=== PATIENT | female | born 1965 | race Caucasian/White ===

== ENCOUNTER 2017-12-23 05:45 | Day surgery (SDC) | payer OTHER ==
[2017-12-23] MEDS ORDERED: NEOSTIGMINE 3 MG/3 ML SYRINGE (06:33)
[2017-12-23] MEDS ORDERED: DEXAMETHASONE 4 MG/ML 1 ML INJ (06:33)
[2017-12-23] MEDS ORDERED: LIDOCAINE 2% (SDV) 5 ML INJ (06:33)
[2017-12-23] MEDS ORDERED: FENTAnyl 50 MCG/ML VIAL (06:33)
[2017-12-23] MEDS ORDERED: ROCURONIUM 50 MG INJ (06:33)
[2017-12-23] MEDS ORDERED: PROPOFOL 20 ML (06:33)
[2017-12-23] MEDS ORDERED: MIDAZOLAM 1 MG/ML 2 ML INJ (06:33)
[2017-12-23] MEDS ORDERED: GLYCOPYRROLATE 0.4 MG INJ (06:33)
[2017-12-23] MEDS ORDERED: ONDANSETRON 4 MG INJ (06:34)
[2017-12-23] MEDS ORDERED: LACTATED RINGER'S 1,000 ML (ENTER RATE) IV* (07:00)
[2017-12-23] MEDS ORDERED: PROPOFOL 1000 MG INJ (07:00)
[2017-12-23] MEDS ORDERED: CEFAZOLIN 1 GM INJ (07:30)
[2017-12-23] MEDS ORDERED: SUCCINYLCHOLINE CHLORIDE 100 MG/5 ML SYG IV (07:30)
[2017-12-23] MEDS ORDERED: FLUMAZENIL 0.5 MG INJ (08:28)
[2017-12-23] MEDS ORDERED: NALOXONE (0.4 MG/ML) INJ (08:29)
== END 2017-12-23 10:49 | disposition home or self-care (01) ==
LOC: SDS 05:45
DX: N92.0 Excessive and frequent menstruation with regular cycle (principal); D25.9 Leiomyoma of uterus, unspecified
CPT/HCPCS: 58558; 84703; 88305